=== PATIENT | female | born 1955 | race Two or more races ===

== ENCOUNTER 2024-07-06 21:22 | Inpatient (IN) | payer MEDICAID ==
[~2024-07-06] VITALS: Ht 154.9 cm; Wt 55.3 kg
[2024-07-06] MEDS ORDERED: MAG HYDROX/AL HYDROX/SIMETH 30 ML UDC PO PRN (23:00)
[2024-07-06] MEDS ORDERED: MAGNESIUM HYDROXIDE 30 ML UDC PO PRN (23:00)
[2024-07-06] MEDS ORDERED: Z GUARD REMEDY 4 OZ OINT TP PRN (23:00)
[2024-07-06] MEDS: ACETAMINOPHEN 325 MG TABLET PO PRN (23:42)
[2024-07-06] MEDS: ZOLPIDEM TARTRATE 5 MG TABLET PO PRN (23:42)
[2024-07-07] VITALS (7 sets, daily range): BP systolic 101–133; BP diastolic 54–67; TEMP 97.9–98.7; O2SAT 93–100
[2024-07-07] MEDS: CEFTRIAXONE 1GM BAG (ER ONLY) 50 ML IV ONE (01:09)
[2024-07-07] MEDS: CEFTRIAXONE 1 G in IV D5W 50 ML IV SCH (01:15)
[2024-07-07] MEDS ORDERED: AZITHROMYCIN 500 MG VIAL ONE (01:20)
[2024-07-07] MEDS: AZITHROMYCIN 500 MG in IV D5W 250 ML IV SCH (01:24)
[2024-07-07] MEDS: PANTOPRAZOLE 40 MG TABLET.DR PO SCH (07:54)
[2024-07-07] MEDS ORDERED: CHOL100043 PO (08:37)
[2024-07-07 09:27] LABS: BASOPHILS % (AUTO) 0.7 % (0.0-2.0); EOSINOPHILS % (AUTO) 1.9 % (0.0-6.0); HEMATOCRIT 41 % (33-45); HEMOGLOBIN 13.2 g/dL (11.5-14.8); LYMPHOCYTES # (AUTO) 1.6 K/uL (0.8-4.8); LYMPHOCYTES % (AUTO) 65.8 % (20.0-44.0); MEAN CORPUSCULAR HEMOGLOBIN 26 PG (26.0-33.0); MEAN CORPUSCULAR HGB CONC 33 g/dl (31.0-36.0); MEAN CORPUSCULAR VOLUME 81 fL (82-100); MONOCYTES # (AUTO) 0.2 K/uL (0.1-1.30); MONOCYTES % (AUTO) 9.4 % (2.0-12.0); NEUTROPHILS # (AUTO) 0.5 K/uL (1.8-8.9); NEUTROPHILS % (AUTO) 22.2 % (43.0-81.0); PLATELET COUNT (AUTO) 229 K/uL (150-450); RED BLOOD CELL COUNT(AUTO) 5.02 MIL/uL (4.0-5.2); RED CELL DISTRIBUTION WIDTH 14.2 % (11.5-15.0); WHITE BLOOD COUNT (AUTO) 2.4 K/uL (4.3-11.0)
[2024-07-07 09:44] LABS: CALCIUM, SERUM 9.1 mg/dL (8.5-10.1); CREATININE 0.5 mg/dL (0.6-1.3); MAGNESIUM 2.2 mg/dL (1.8-2.4); PHOSPHORUS 3.1 mg/dL (2.5-4.9); POTASSIUM 3.6 mmol/L (3.5-5.1)
[2024-07-07] MEDS: ENOXAPARIN SODIUM 40 MG/0.4 ML DISP.SYRIN SQ SCH (10:27)
[2024-07-07 10:44] LABS: BAND % (MANUAL) 10 % (0.0-5.0); EOSINOPHILS % (MANUAL) 1 % (0-4); LYMPHOCYTES % (MANUAL) 66 % (16-48); METAMYELOCYTES % 1 % (0-0); MONOCYTES % (MANUAL) 9 % (0-11.0); NEUTROPHILS % (MANUAL) 20 (42-76)
[2024-07-07 10:45] LABS: ANISOCYTOSIS 1+; HYPOCHROMASIA 1+; MYELOCYTES % 1 % (0-0); PLATELET ESTIMATE ADEQUATE; SMUDGE CELLS FEW
[2024-07-07 11:43] LABS: ALBUMIN 3.3 g/dL (3.4-5.0); BILIRUBIN,DIRECT 0.1 mg/dL (0.0-0.2); BILIRUBIN,TOTAL 0.3 mg/dL (0.2-1.0)
[2024-07-07] MEDS ORDERED: REMDESIVIR (CHARGED) 200 MG, *LOADING DOSE 1 EA in IV NS 0.9% 210 ML IV ONE (12:00)
[2024-07-07] MEDS ORDERED: REMDESIVIR (CHARGED) 100 MG in IV NS 0.9% 80 ML IV SCH (23:00)
[2024-07-08] VITALS: BP 140/83; TEMP 97.9; O2SAT 96
[2024-07-08 04:00] VITALS: BP 130/69; TEMP 98.4; O2SAT 95
[2024-07-08 08:00] VITALS: BP 141/72; TEMP 98.6; O2SAT 92
[2024-07-08] MEDS ORDERED: REMDESIVIR (CHARGED) 100 MG in IV NS 0.9% 80 ML IV SCH (12:00)
[2024-07-08 16:00] VITALS: BP 121/70; TEMP 98.6; O2SAT 93
[2024-07-08 20:00] VITALS: BP 134/77; TEMP 97.7; O2SAT 96
[2024-07-09] VITALS (7 sets, daily range): BP systolic 98–122; BP diastolic 58–79; TEMP 97.5–98.4; O2SAT 92–96
[2024-07-09] MEDS: AZITHROMYCIN 250 MG TABLET PO SCH (23:08)
[2024-07-10] VITALS: BP 104/70; TEMP 97.7; O2SAT 96
[2024-07-10 04:00] VITALS: BP 116/60; TEMP 97.7; O2SAT 96
[2024-07-10 08:00] VITALS: BP 124/88; TEMP 98.2; O2SAT 93
[2024-07-10] MEDS ORDERED: AZIT250T PO (11:08)
[2024-07-10 12:00] VITALS: BP 125/68; TEMP 98.2; O2SAT 93
== END 2024-07-10 16:00 | disposition home or self-care (01) | DRG 137 ==
LOC: TELE1 21:22 → MEDSG1 07-10 09:55
PROVIDERS: ADMIT Nurse Practitioner Acute Care; ATTEND Nurse Practitioner Acute Care
DX: U07.1 COVID-19 (principal); J15.9 Unspecified bacterial pneumonia; E66.9 Obesity, unspecified; J98.11 Atelectasis; I25.10 Atherosclerotic heart disease of native coronary artery without angina pectoris; E78.5 Hyperlipidemia, unspecified; G47.00 Insomnia, unspecified; Z68.23 Body mass index [BMI] 23.0-23.9, adult; R73.03 Prediabetes
CPT/HCPCS: 36415; 71045-TC; 80048-TC; 80061-TC; 80076-TC; 82728-TC; 83735-TC; 84100-TC; 84484-TC; 85025-TC; 85378-TC; 86140-TC; 87081-TC; A4223; G0378; J0456; J0696; J1650; J2048; J7030; J7050; J7060